=== PATIENT | female | born 1965 | race Asian ===

== ENCOUNTER 2018-10-05 20:49 | Emergency (ER) | payer SELFPAY ==
[~2018-10-05] VITALS: Ht 152.4 cm; Wt 45.4 kg
--- NOTE | 2018-10-05 20:58 | NUR ---
TRIPP FROM WORK FOR HEADACHE, EPISODES OF NAUSEA AND VOMITING, PT AAOX4, PT ON MONITOR, VSS, NAD NOTED, PENDING ER PROVIDER RAZA
[2018-10-05] MEDS ORDERED: IV NS 0.9% 1,000 ML BAG IV ONE (21:30)
[2018-10-05] MEDS ORDERED: ONDANSETRON HCL/PF 4 MG/2 ML VIAL IVP ONE (21:30)
[2018-10-05] MEDS ORDERED: ONDANSETRON HCL/PF 4 MG/2 ML VIAL ONE (21:45)
[2018-10-05 21:56] LABS: BASOPHILS # (AUTO) 0.1 /CMM (0.0-0.2); BASOPHILS % (AUTO) 0.7 % (0.0-2.0); EOSINOPHILS % (AUTO) 0.6 % (0.0-6.0); HEMATOCRIT 42 % (33-45); LYMPHOCYTES # (AUTO) 1.7 /CMM (0.8-4.8); LYMPHOCYTES % (AUTO) 20.6 % (20.0-44.0); MEAN CORPUSCULAR HGB CONC 31 g/dl (31.0-36.0); MEAN CORPUSCULAR VOLUME 74 fL (82-100); MONOCYTES # (AUTO) 0.4 /CMM (0.1-1.30); MONOCYTES % (AUTO) 5.3 % (2.0-12.0); NEUTROPHILS % (AUTO) 72.8 % (43.0-81.0); PLATELET COUNT (AUTO) 237 /CMM (150-450); RED BLOOD CELL COUNT(AUTO) 5.68 MIL/uL (4.0-5.2); WHITE BLOOD COUNT (AUTO) 8.3 K/uL (4.3-11.0)
[2018-10-05 22:11] LABS: CALCIUM, SERUM 9.3 mg/dL (8.5-10.1); CARBON DIOXIDE 28 mmol/L (21-32); CHLORIDE 106 mmol/L (98-107); CREATININE 0.6 mg/dL (0.6-1.3); GLUCOSE 217 mg/dL (74-106); POTASSIUM 3.3 mmol/L (3.5-5.1); SODIUM SERUM 142 mmol/L (136-145); UREA NITROGEN, BLOOD 25 mg/dL (7-18)
[2018-10-05 22:18] LABS: ALANINE AMINOTRANSFERASE 27 U/L (12-78); ALBUMIN 3.7 g/dL (3.4-5.0); ALKALINE PHOSPHATASE 110 U/L (46-116); ASPARTATE AMINOTRANSFERASE 23 U/L (15-37); BILIRUBIN,DIRECT 0.1 mg/dL (0.0-0.2); BILIRUBIN,TOTAL 0.2 mg/dL (0.2-1.0); TOTAL PROTEIN, SERUM 7.7 g/dL (6.4-8.2)
[2018-10-05] MEDS ORDERED: IOHEXOL-350 100 ML VIAL IV ONE (22:29)
[2018-10-05] MEDS ORDERED: CT SWABBABLE VALVE TRANS SET 1 EA INFUS.SET MC ONE (22:29)
[2018-10-05] MEDS ORDERED: IV NS 0.9% 250 ML IV ONE (22:30)
[2018-10-05 22:34] LABS: APPEARANCE,URINE Clear (CLEAR); BILIRUBIN,URINE Negative (NEGATIVE); BLOOD, URINE Trace-intact Ery/uL (NEGATIVE); COLOR,URINE Yellow (YELLOW); KETONES,URINE Negative (NEGATIVE); LEUKOCYTE ESTERASE ,URINE Negative (NEGATIVE); NITRITE, URINE Negative (NEGATIVE); PROTEIN,URINE Negative (NEGATIVE); UGLUCOSE 100 MG/DL mg/dL (NEGATIVE); UROBILINOGEN,URINE 0.2 EU/dL (0.2)
[2018-10-05 22:58] LABS: BACTERIA,URINE Few /HPF (None Seen); RBC,URINE 0-2 /HPF (0-2); WBC,URINE 0-2 /HPF (0-3)
[2018-10-05] MEDS ORDERED: MORPHINE SULFATE INJ 4 MG/ML DISP.SYRIN ONE (22:58)
[2018-10-05 22:59] LABS: SQUAMOUS EPITHELIAL CELL,UR Few /HPF (None Seen); URINE AMORPHOUS PHOSPHATES Few /HPF (None Seen)
[2018-10-05] MEDS ORDERED: LABETALOL 20 MG/4 ML VIAL IV ONE (23:00)
[2018-10-05] MEDS ORDERED: MORPHINE SULFATE INJ 2 MG/ML DISP.SYRIN IV ONE (23:00)
[2018-10-05] MEDS ORDERED: ENALAPRILAT DIHYD. (2.5MG/ML) 1.25 MG/ML VIAL IV ONE ×2 (23:07→23:30)
--- NOTE | 2018-10-05 23:20 | NUR ---
SPOKE TO CAMERON FROM [facility]; SHE WILL BE WORKING ON THE TRANSFER CALL BACK# [phone] FAX MD ANDREA NOTES AND LABS TO [phone]
--- NOTE | 2018-10-05 23:37 | NUR ---
CALL FOR REPORT: [facility] [phone]
[2018-10-05 23:38] VITALS: BP 162/108
--- NOTE | 2018-10-05 23:52 | NUR ---
PT FOR [facility] TRANSPORT [facility] TO [facility]; REPORT GIVEN TO AMBULANCE STAFF AWARE OF CRITICAL TRANSFER. PT AROUSABLE AT THIS TIME; ABLE TO ANSWER QUESTIONS, DENIES ANY PAIN/DISCOMFORT.
--- NOTE | 2018-10-05 23:55 | NUR ---
PT LEFT THE FACILITY WITH [facility] STAFF.
--- NOTE | 2018-10-06 00:01 | NUR ---
CALLED FOR REPORT; NURSE NOT AVAILABLE AT THIS TIME; WILL CALL BACK; LOOK FOR ANTHONY FOR REPORT PER [employer]
--- NOTE | 2018-10-06 00:16 | NUR ---
REPORT GIVEN TO ANTHONY WILSON AT [facility]
== END 2018-10-06 00:10 | disposition short-term general hospital (02) ==
LOC: ER 20:55
DX: I61.5 Nontraumatic intracerebral hemorrhage, intraventricular (principal); I10 Essential (primary) hypertension
CPT/HCPCS: 36415; 70496-TC; 70498-TC; 80048-TC; 80076-TC; 81000-TC; 84484-TC; 85025-TC; 85730-TC; J2270; J2405; J3490; J7030; J7050; Q9967